=== PATIENT | male | born 1960 | race Caucasian/White ===

== ENCOUNTER → 2021-03-29 | Outpatient (CLI) | payer OTHER ==
--- NOTE | 2021-03-29 14:16 | 2DMMODE ---
[facility] [place] [address] 2 D/M-MODE ECHOCARDIOGRAM Name: HARDY PATRICIO Room #: [facility] [id number] Admission: 03/29/21 Attend Phys: Yuki Coker MD Discharge: Date of : 58 Report #: [id number] THIS REPORT FOR: cc: Yuki Coker MD, Constance M. MD Park, Jin S. MD ~ APPROVED REPORT Study performed: 03/29/2021 13:00:26 EXAM: Comprehensive 2D, Doppler, and color-flow Echocardiogram Patient Location: Out-Patient Status: routine BSA: 2.15 HR: 75 bpm Rhythm: NSR Other Information Study Quality: Good Indications CAD, HTN, HLP. 2D Dimensions RVDd: 28.39 mm IVSd: 10.49 (7-11mm) LVOT Diam: 21.73 (18-24mm) LVDd: 48.39 mm PWd: 10.24 (7-11mm) Ascending Ao: 32.22 (22-36mm) LVDs: 32.60 (25-40mm) Left Atrium: 38.46 (27-40mm) Aortic Root: 36.18 mm Volumes Left Atrial Volume (Systole) Single Plane 4CH: 30.41 mL Single Plane 2CH: 39.96 mL LA ESV Index: 18.00 mL/m2 Aortic Valve AoV Peak Silvino.: 1.29 m/s AO Peak Gr.: 6.68 mmHg LVOT Max P.83 mmHg LVOT Max V: 0.98 m/s CHRISTINE Vmax: 2.81 cm2 [facility] [address] [place] [address] 2 D/M-MODE ECHOCARDIOGRAM Name: HARDY PATRICIO Room #: [facility]#: [id number] Admission: 03/29/21 Attend Phys: Yuki Coker Discharge: Date of : 58 Report #: [id number] Mitral Valve E/A Ratio: 1.2 MV Decel. Time: 209.19 ms MV E Max Silvino.: 0.62 m/s MV A Silvion.: 0.51 m/s MV PHT: 60.67 ms IVRT: 83.04 ms Pulmonary Valve PV Peak Silvino.: 1.20 m/s PV Peak Gr.: 5.74 mmHg Pulmonary Vein P Vein S: 0.36 m/s P Vein D: 0.38 m/s P Vein S/D Ratio: 0.95 Tricuspid Valve TR Peak Silvino.: 2.18 m/s RAP Estimate: 5.00 mmHg TR Peak Gr.: 19.00 mmHg PA Pressure: 24.00 mmHg Left Ventricle The left ventricle is normal size. There is normal LV segmental wall motion. There is normal left ventricular wall thickness. Left ventricular systolic function is normal. LVEF is 55-60%. Right Ventricle The right ventricle is normal size. The right ventricular systolic function is normal. Atria The left atrium size is normal. The right atrium size is normal. Aortic Valve The aortic valve is normal in structure. Trace aortic regurgitation. There is no aortic valvular stenosis. Mitral Valve The mitral valve is normal in structure. There is no mitral valve regurgitation noted. No evidence of mitral valve stenosis. Tricuspid Valve The tricuspid valve is normal in structure. Trace tricuspid regurgitation. Estimated PAP is 24mmHg. [facility] [place] [address] 2 D/M-MODE ECHOCARDIOGRAM Name: HARDY PATRICIO Room #: YOLY [facility]#: [id number] Admission: 03/29/21 Attend Phys: Yuki Coker Discharge: Date of : 58 Report #: [id number] Pulmonic Valve The pulmonary valve is normal in structure. Trace pulmonic regurgitation. Great Vessels The aortic root is normal in size. The ascending aorta is normal in size. IVC is normal in size and collapses >50% with inspiration. Pericardium There is no pericardial effusion. <Conclusion> The left ventricle is normal size. There is normal left ventricular wall thickness. Left ventricular systolic function is normal. The right ventricle is normal size. The left atrium size is normal. Trace aortic regurgitation. There is no mitral valve regurgitation noted. Trace tricuspid regurgitation. Estimated PAP is 24mmHg. <ELECTRONICALLY SIGNED> By: Aakash Foley MD 03/29/21 141 [id number] 15 Aakash Foley MD /INF
== END ==
LOC: CV 03-06 10:15
PROVIDERS: ATTEND Family Medicine
DX: I25.10 Atherosclerotic heart disease of native coronary artery without angina pectoris (principal); I10 Essential (primary) hypertension; E78.2 Mixed hyperlipidemia; Z86.73 Personal history of transient ischemic attack (TIA), and cerebral infarction without residual deficits